=== PATIENT | female | born 1940 | race Caucasian/White ===

== ENCOUNTER 2018-02-25 15:33 | Emergency (ER) | payer MEDICAID ==
[~2018-02-25] VITALS: Ht 167.6 cm; Wt 92.6 kg
[~2018-02-25 15:33] MED LIST: APAP/HYDROCODON1 T13 PO; ASPI-COR81 M3; BG MC; COL100 PO; COZ25; COZ50 PO; DEXPF IV; GLU500; GLU500 PO; HUMULIN R100 U/1 M1 SC; LAC PO; METOPROLOL SUCC25 M1; NIT0.4 SL; PRA20 PO; PRAVACHOL10 MG PO; PRI20 PO; THERAGRAN-M1 TA4 PO; TOP50 PO; TYL325 PO; ZOFI IV; ZOS3I IV
[2018-02-25 20:17] VITALS: BP 176/91
== END 2018-02-25 20:17 | disposition home or self-care (01) ==
LOC: ED 15:33
DX: S01.01XA Laceration without foreign body of scalp, initial encounter (principal); I10 Essential (primary) hypertension; E11.9 Type 2 diabetes mellitus without complications; E78.00 Pure hypercholesterolemia, unspecified; W01.0XXA Fall on same level from slipping, tripping and stumbling without subsequent striking against object, initial encounter; Y93.89 Activity, other specified; Y92.89 Other specified places as the place of occurrence of the external cause; Y99.8 Other external cause status
CPT/HCPCS: 90715

== ENCOUNTER 2018-02-27 07:42 | Emergency (ER) | payer MEDICAID ==
[~2018-02-27] VITALS: Ht 157.5 cm; Wt 91.2 kg
[2018-02-27 07:49] VITALS: BP 183/93
== END 2018-02-27 08:30 | disposition home or self-care (01) ==
LOC: ED 07:42
DX: S01.01XD Laceration without foreign body of scalp, subsequent encounter (principal); I10 Essential (primary) hypertension; E11.9 Type 2 diabetes mellitus without complications; E78.00 Pure hypercholesterolemia, unspecified; Z90.49 Acquired absence of other specified parts of digestive tract; Z90.710 Acquired absence of both cervix and uterus; X58.XXXD Exposure to other specified factors, subsequent encounter